=== PATIENT | female | born 1990 | race Hispanic/Latino ===

== ENCOUNTER 2023-05-31 19:30 | Inpatient (IN) | payer BC ==
[2023-06-01] MEDS ORDERED: Oxytocin 30 units/NS 500 ML 500 ML IV SCH ×3 (02:22)
[2023-06-01] MEDS ORDERED: Ibuprofen 800 MG TAB PO PRN (02:22)
[2023-06-01] MEDS ORDERED: fentaNYL 50 mcg/mL 1 mL Vial SLOW IVP PRN (02:22)
[2023-06-01] MEDS ORDERED: Carboprost 250 MCG/ML AMP IM PRN (02:22)
[2023-06-01] MEDS ORDERED: Lidocaine 1% (PF) 30 ML VIAL SC PRN ×2 (02:22)
[2023-06-01] MEDS ORDERED: Ondansetron PF 4 MG/2 ML Vial IVP PRN ×2 (02:22)
[2023-06-01] MEDS ORDERED: hydrALAZINE 20 MG/ML VIAL SLOW IVP PRN ×3 (02:22→13:08)
[2023-06-01] MEDS ORDERED: HYDROcodone/Acetaminophen 5/325 mg Tablet PO PRN ×2 (02:22)
[2023-06-01] MEDS ORDERED: Acetaminophen 500 MG TAB PO PRN (02:22)
[2023-06-01] MEDS ORDERED: Tranexamic Acid 1,000 MG/10 ML VIAL IVP PRN (02:22)
[2023-06-01] MEDS ORDERED: Methylergonovine 0.2 MG/ML VIAL IM PRN (02:22)
[2023-06-01] MEDS ORDERED: Misoprostol 200 MCG TAB PR PRN (02:22)
[2023-06-01] MEDS ORDERED: Zolpidem Tartrate 5 MG TAB PO PRN (02:22)
[2023-06-01] MEDS ORDERED: Promethazine HCl 25 MG/ML VIAL IM PRN ×2 (02:22)
[2023-06-01] MEDS ORDERED: Diphenoxylate HCl/Atropine Tablet PO PRN ×2 (02:22)
[2023-06-01 02:33] VITALS: BMI 30.2
[2023-06-01 03:03] LABS: Hematocrit 34.5 % (34.9-44.5); Hemoglobin 11.8 g/dL (12.0-15.5); Mean Corpuscular HGB CONC 34.2 g/dL (32.0-36.0); Mean Corpuscular Hemoglobin 30.5 pg (27.0-33.0); Mean Corpuscular Volume 89.1 fl (81.6-98.3); Mean Platelet Volume 11.5 fl (7.4-10.4); Platelet Count 152 10x3/uL (150-450); RBC Distribution Width 13.9 % (11.5-14.5); Red Blood Cell (RBC) Count 3.87 10x6/uL (3.90-5.03); White Blood Cell (WBC) Count 6.1 10x3/uL (3.5-10.5)
[2023-06-01] MEDS: Misoprostol 100 MCG TAB VAG SCH (03:20)
[2023-06-01 03:33] LABS: Syphilis Antibody Nonreactive (Nonreactive); Syphilis Antibody Index 0.04 S/CO (<1.00 Non-Reactive)
[2023-06-01 03:34] LABS: HBSAg Index 0.19 S/CO (0-0.99); Hep B Surf Ag - L&D Non-Reactive S/CO (NonReactive)
[2023-06-01] MEDS ORDERED: Lanolin Ointment 7 GM TUBE TOP PRN (13:08)
[2023-06-01] MEDS ORDERED: Boostrix 0.5 ML (Tdap) VIAL (>/=7 yrs of age) IM ONE (13:08)
[2023-06-01] MEDS ORDERED: traMADol HCl 50 MG TAB PO PRN (13:08)
[2023-06-01] MEDS ORDERED: Bisacodyl 10 MG SUPP PR PRN (13:08)
[2023-06-01] MEDS ORDERED: Milk Of Magnesia 30 ML UDCUP PO PRN (13:08)
[2023-06-01] MEDS: Ferrous Sulfate 325 MG TAB PO SCH (20:03)
[2023-06-01] MEDS: Ibuprofen 800 MG TAB PO SCH (20:04)
[2023-06-01] MEDS: Docusate 100 MG CAP PO SCH (20:05)
[2023-06-02] MEDS: Ibuprofen 800 MG TAB PO SCH ×2 (03:26→10:47)
[2023-06-02] MEDS: Misoprostol 100 MCG TAB VAG SCH (06:39)
[2023-06-02 07:45] VITALS: BP 114/58; TEMP 98.6
[2023-06-02] MEDS: Docusate 100 MG CAP PO SCH (08:53)
[2023-06-02] MEDS: Ferrous Sulfate 325 MG TAB PO SCH (08:53)
[2023-06-02] MEDS ORDERED: Prenatal Vitamin 1 TAB PO SCH (09:00)
== END 2023-06-02 13:42 | disposition home or self-care (01) | DRG 807 ==
LOC: CSHLD 06-01 01:44 → CSHPED 06-01 13:06
PROVIDERS: ADMIT Obstetrics & Gynecology; ATTEND Obstetrics & Gynecology
PROC: 10E0XZZ Delivery of Products of Conception, External Approach (ICD-10-PCS; principal; 2023-06-01)
PROC: 0UQGXZZ Repair Vagina, External Approach (ICD-10-PCS; 2023-06-01)
DX: O80 Encounter for full-term uncomplicated delivery (principal); Z37.0 Single live birth; Z3A.40 40 weeks gestation of pregnancy; O71.4 Obstetric high vaginal laceration alone
CPT/HCPCS: 36415; 85027; 86780; 86850; 86900; 86901; 87340; J2001; J2590

== ENCOUNTER 2025-03-20 14:53 | Inpatient (IN) | payer BC ==
[2025-03-20] MEDS ORDERED: Tranexamic Acid 1,000 MG/10 ML VIAL IVP PRN (21:06)
[2025-03-20] MEDS ORDERED: hydrALAZINE 20 MG/ML VIAL SLOW IVP PRN (21:06)
[2025-03-20] MEDS ORDERED: HYDROcodone/Acetaminophen 5/325 mg Tablet PO PRN ×2 (21:06)
[2025-03-20] MEDS ORDERED: Ondansetron PF 4 MG/2 ML Vial IVP PRN (21:06)
[2025-03-20] MEDS ORDERED: Acetaminophen 500 MG TAB PO PRN (21:06)
[2025-03-20] MEDS ORDERED: Diphenoxylate HCl/Atropine Tablet PO PRN ×2 (21:06)
[2025-03-20] MEDS ORDERED: Methylergonovine 0.2 MG/ML VIAL IM PRN (21:06)
[2025-03-20] MEDS ORDERED: Carboprost 250 MCG/ML AMP IM PRN (21:06)
[2025-03-20 21:07] VITALS: BMI 31.1
[2025-03-20 21:43] LABS: Hematocrit 33.7 % (34.9-44.5); Hemoglobin 11.6 g/dL (12.0-15.5); Mean Corpuscular Hemoglobin 29.9 pg (27.0-33.0); Mean Corpuscular Volume 86.9 fL (81.6-98.3); Platelet Count 158 10x3/uL (150-450); Red Blood Cell (RBC) Count 3.88 10x6/uL (3.90-5.03); White Blood Cell (WBC) Count 6.84 10x3/uL (3.5-10.5)
[2025-03-20 22:06] LABS: Syphilis Antibody Index 0.18 S/CO (<1.00 Non-Reactive)
[2025-03-20 22:07] LABS: Hep B Surf Ag - L&D Non-Reactive S/CO (NonReactive)
[2025-03-21] MEDS: Oxytocin 30 units/NS 500 ML 500 ML IV SCH ×2 (03:13→08:14)
[2025-03-21] MEDS: Lidocaine 1% (PF) 30 ML VIAL SC PRN (08:16)
[2025-03-21] MEDS: Ibuprofen 800 MG TAB PO PRN (09:32)
[2025-03-21] MEDS ORDERED: hydrALAZINE 20 MG/ML VIAL SLOW IVP PRN (09:40)
[2025-03-21] MEDS ORDERED: Milk Of Magnesia 30 ML UDCUP PO PRN (09:40)
[2025-03-21] MEDS ORDERED: Bisacodyl 10 MG SUPP PR PRN (09:40)
[2025-03-21] MEDS ORDERED: Boostrix 0.5 ML (Tdap) VIAL (>/=7 yrs of age) IM ONE (09:40)
[2025-03-21] MEDS ORDERED: Benzocaine-Menthol 82.5 ML CAN TOP PRN (09:40)
[2025-03-21] MEDS ORDERED: Preparation H Ointment 28 GM TUBE PR PRN (09:40)
[2025-03-21] MEDS ORDERED: diphenhydrAMINE 25 MG CAP PO PRN (09:40)
[2025-03-21] MEDS ORDERED: Lanolin Ointment 7 GM TUBE TOP PRN (09:40)
[2025-03-21] MEDS: Ferrous Sulfate 325 MG TAB PO SCH (11:25)
[2025-03-21] MEDS: Ibuprofen 800 MG TAB PO SCH (16:53)
[2025-03-22 13:12] VITALS: BP 109/58; TEMP 98.1
== END 2025-03-22 13:30 | disposition home or self-care (01) | DRG 807 ==
LOC: CSHLD 20:14 → CSHANTE 03-21 10:04
PROVIDERS: ADMIT Obstetrics & Gynecology; ATTEND Obstetrics & Gynecology
PROC: 10E0XZZ Delivery of Products of Conception, External Approach (ICD-10-PCS; principal; 2025-03-21)
DX: O80 Encounter for full-term uncomplicated delivery (principal); Z37.0 Single live birth; Z3A.39 39 weeks gestation of pregnancy; Z79.899 Other long term (current) drug therapy
CPT/HCPCS: 85027; 86780; 86850; 86900; 86901; 87340; J2590